=== PATIENT | female | born 1950 | race Caucasian/White ===

== ENCOUNTER 2023-06-06 08:52 | Emergency (ER) | payer BC ==
[~2023-06-06] VITALS: Ht 170.2 cm; Wt 72.7 kg
[2023-06-06 09:19] VITALS: TEMP 97.8
[2023-06-06 09:27] LABS: BASOPHILS # (AUTO) 0.1 X10'3 (0-0.2); BASOPHILS % (AUTO) 0.7 % (0-1); EOSINOPHILS # (AUTO) 0.5 X10'3 (0-0.9); EOSINOPHILS % (AUTO) 6.5 % (0-6); HEMATOCRIT 41.2 % (35.0-45.0); HEMOGLOBIN 13.4 g/dl (12.0-16.0); LYMPHOCYTES % (AUTO) 36.1 % (21-51); MEAN CORPUSCULAR HEMOGLOBIN 29.8 PG (27.0-31.0); MEAN CORPUSCULAR HGB CONC 32.7 g/dL (33.0-36.5); MEAN CORPUSCULAR VOLUME 91.2 FL (78-98); MEAN PLATELET VOLUME 8.2 FL (7.4-10.4); MONOCYTES # (AUTO) 0.5 X10'3 (0-0.9); MONOCYTES % (AUTO) 6.2 % (2-12); NEUTROPHILS # (AUTO) 4.2 X10'3 (1.8-7.7); NEUTROPHILS % (AUTO) 50.5 % (42-75); PLATELET COUNT 234 X10'3 (140-440); RED BLOOD COUNT 4.51 X10'6 (4.20-5.60); RED CELL DISTRIBUTION WIDTH 13.1 % (11.5-14.5); WHITE BLOOD COUNT 8.3 X10'3 (4.5-11.0)
[2023-06-06] MEDS: metoprolol tartrate 1mg/ml inj IV ONE (09:30)
[2023-06-06] MEDS ORDERED: metoprolol succinate 25mg (24-HOUR) SR. Tablet PO STA (09:34)
[2023-06-06 09:55] LABS: ALBUMIN 3.2 G/DL (3.4-5.0); ANION GAP 6 (8-16); BLOOD UREA NITROGEN 13 MG/DL (7-18); BUN/CREATININE RATIO 14.9 (10.0-20.0); CALCIUM 8.7 MG/DL (8.5-10.1); CHLORIDE 103 MMOL/L (99-107); CREATININE 0.87 MG/DL (0.40-0.90); GLUCOSE 144 MG/DL (70-104); POTASSIUM 3.2 MMOL/L (3.5-5.1); SODIUM 138 MMOL/L (135-145); TOTAL CARBON DIOXIDE 29.4 MMOL/L (24-32); eCRCL 58 ML/MIN; eGFR 64 ML/MIN
[2023-06-06] MEDS: metoprolol succinate 25mg (24-HOUR) SR. Tablet PO STA (09:58)
[2023-06-06 10:13] LABS: PRO BRAIN NATRIURETIC PEPTIDE 261 PG/ML (0-125)
[2023-06-06] MEDS ORDERED: METO-395 PO (10:18)
[2023-06-06 10:23] VITALS: BP 130/76; PULSE 74; RESP 22; O2SAT 100
[2023-06-06] MEDS: potassium Cl 20 mEq SR tablet PO STA (10:34)
== END 2023-06-06 10:26 | disposition home or self-care (01) ==
LOC: ER 08:53
DX: I48.20 Chronic atrial fibrillation, unspecified (principal); I48.0 Paroxysmal atrial fibrillation; I10 Essential (primary) hypertension; Z79.899 Other long term (current) drug therapy
CPT/HCPCS: 36415; 71045; 80048; 83880; 84484; 85025; 93005; 99291; J7030